=== PATIENT | female | born 1975 | race Caucasian/White ===

== ENCOUNTER → 2017-05-06 | Outpatient (CLI) | payer OTHER ==
--- NOTE | 2017-05-06 13:58 | DIREP ---
PROCEDURE:US PELVIC FOLLOWED BY TRANSVAGINAL COMPARISON:None. INDICATIONS:N92.4 EXCESSIVE BLEEDING IN PREMENOPAUSAL PERIOD TECHNIQUE:Pelvic ultrasound using transabdominal technique. Endovaginal images were also obtained for better assessment of the uterus and adnexa. 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 If this patient is menopausal, the endometrium should be considered thickened. UTERUS:Size is 9.0 x 5.5 x 6.6 cm. The myometrium is heterogeneous the endometrial myometrial junction is ill-defined and there is asymmetry in the myometrial mckinney suggesting a diagnosis of adenomyosis. A focal inhomogeneity was measured on this study, without edge shadow to confirm leiomyoma it measured 2.5 x 2.3 x 1.5 cm. The measured lesion may represent atypical appearing leiomyoma or adenomyoma. A myometrial cyst is noted in the posterior myometrium measuring 0.9 x 0.9 x 0.6 cm. ENDOMETRIUM:Not well visualized due to inhomogeneity within the myometrium. Best seen transabdominally, approximately 5 mm in thickness. RIGHT OVARY:Normal appearance. Right ovary measures 2.6 x 1.8 x 3 cm. There is a 1.2 cm corpus luteal cyst in the right ovary. LEFT OVARY:Normal appearance. 4.0 x 3.6 x 3.1 cm. A simple cyst is noted measuring 2.7 x 2.8 x 2.0 cm. CUL-DE-SAC:Normal. OTHER:Negative. CONCLUSION: 1. Uterine adenomyosis with small (<2 cm) atypical appearing leiomyoma or adenomyoma. Please see above comment regarding endometrial thickness and menstrual status. 2. Left ovarian cyst: Functional. 3. Right ovarian cyst: Corpus luteal. Dictated by: WILMER Physician on 05/06/2017 at 01:06 PM ld
== END | disposition home or self-care (01) ==
LOC: RAD 10:34
PROVIDERS: ATTEND Hospitalist
DX: N92.4 Excessive bleeding in the premenopausal period (principal); N83.292 Other ovarian cyst, left side; N83.291 Other ovarian cyst, right side
CPT/HCPCS: 76830; 76856

== ENCOUNTER 2017-05-14 04:12 | Day surgery (SDC) | payer OTHER ==
[2017-05-13 13:57] VITALS: BP 155/94
[2017-05-13 15:25] LABS: BASOPHIL % 0.2 % (0.0-0.2); EOSINOPHIL # 0.1 10^3/uL (0.0-0.2); EOSINOPHIL % 0.4 % (0.0-5.0); HEMOGLOBIN 11.6 g/dL (12.0-15.0); LYMPHOCYTES % 23.8 % (24.0-44.0); MEAN CELL HGB CONCENTRATION 31.2 g/dL (33-37); MEAN CORP VOLUME 86.7 fL (78-100); MEAN PLATELET VOLUME 9.6 fL (7.8-11.0); MONOCYTES # 0.6 10^3/uL (0.3-0.8); MONOCYTES % 5.1 % (5.0-12.0); NEUTROPHIL # 8.9 10^3/uL (1.8-7.7); NEUTROPHILS % 70.3 % (41.0-85.0); RED CELL DISTRIBUTION WIDTH 16.4 % (11.5-14.5); WHITE BLOOD CELL 12.6 10^3/uL (4.5-11.0)
[2017-05-13 15:28] LABS: BILIRUBIN,URINE NEGATIVE (NEGATIVE); UROBILINOGEN,URINE NORMAL (NEGATIVE)
[2017-05-13 15:32] LABS: APPEARANCE,URINE CLEAR (CLEAR); UA COLOR AMBER (YELLOW)
[2017-05-13 15:50] LABS: CALCIUM 9.1 mg/dL (8.4-10.5); CARBON DIOXIDE 24.8 mmol/L (20.0-32)
--- NOTE | 2017-05-13 16:35 | PCM.EKG ---
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
[~2017-05-14] VITALS: Ht 166.4 cm; Wt 83.9 kg
[2017-05-14] VITALS (10 sets, daily range): BP systolic 110–144; BP diastolic 63–92
[~2017-05-14 04:12] MED LIST: PROP40TA PO; TOPI25TA8 PO
[2017-05-14] MEDS ORDERED: NS 100ML 100 ML IV ONE (05:28)
[2017-05-14] MEDS ORDERED: LACTATED RINGERS 1,000 ML ONE ×2 (05:28→06:41)
[2017-05-14] MEDS ORDERED: CLEOCIN ONE (05:29)
[2017-05-14] MEDS ORDERED: ROCEPHIN ONE (05:29)
[2017-05-14] MEDS ORDERED: CLEOCIN IV ONE (06:00)
[2017-05-14] MEDS ORDERED: TYLENOL PO ONE ×2 (06:00→06:33)
[2017-05-14] MEDS ORDERED: NEURONTIN PO ONE (06:00)
[2017-05-14] MEDS ORDERED: LACTATED RINGERS 1,000 ML IV ONE (06:00)
[2017-05-14] MEDS ORDERED: ROCEPHIN 1,000 MG in NS 100ML 100 ML IV ONE (06:00)
[2017-05-14] MEDS ORDERED: NEURONTIN ONE (06:33)
[2017-05-14] MEDS ORDERED: ZOFRAN ONE (06:40)
[2017-05-14] MEDS ORDERED: DECADRON ONE (06:40)
[2017-05-14] MEDS ORDERED: TORADOL ONE (06:40)
[2017-05-14] MEDS ORDERED: DIPRIVAN IV ONE (06:41)
[2017-05-14] MEDS ORDERED: SUBLIMAZE ONE (06:41)
[2017-05-14] MEDS ORDERED: LIDOCAINE 2% VIAL ONE (06:41)
[2017-05-14] MEDS ORDERED: VERSED ONE (06:41)
[2017-05-14] MEDS ORDERED: SODIUM CHLORIDE IR ONE (07:15)
[2017-05-14] MEDS ORDERED: HYDR-926 PO (08:47)
--- NOTE | 2017-05-14 08:54 | PRM.DC ---
Discharge Surg Summary Surgical Discharge Diagnosis: (1) Status post hysteroscopic ablation of endometrium ICD Codes: Z98.890 - Other specified postprocedural states SNOMED: 500314131 (2) Menorrhagia ICD Codes: N92.0 - Excessive and frequent menstruation with regular cycle SNOMED: 329803242 Consultations DR VANE FERGUSON PRESENT IN OR WITH NC Procedures: HYSTEROSCOPY, MIRENA GLOBAL ENDOMETRIAL ABLATION Impressions/Complications: NO COMPLICATIONS HPI/Course PT TOLERATED PROCEDURE VERY WELL. Lab/Raghavendra/BBK/Rad Laboratory Tests Test 05/13/17 15:19 White Blood Count 12.6 10^3/uL Red Blood Count 4.29 10^6/uL Hemoglobin 11.6 g/dL Hematocrit 37.2 % Mean Corpuscular Volume 86.7 fL Mean Corpuscular Hemoglobin 27.0 pg Mean Corpuscular Hemoglobin Concent 31.2 g/dL Red Cell Distribution Width 16.4 % Platelet Count 472 10^3/uL Mean Platelet Volume 9.6 fL Neutrophils (%) (Auto) 70.3 % Lymphocytes (%) (Auto) 23.8 % Monocytes (%) (Auto) 5.1 % Neutrophils # (Auto) 8.9 10^3/uL Lymphocytes # (Auto) 3.0 10^3/uL Monocytes # (Auto) 0.6 10^3/uL Absolute Immature Granulocyte (auto 0.02 10^3 u/L Eosinophils % 0.4 % Basophils % 0.2 % Basophils # 0.0 10^3/uL Eosinophil Count 0.1 10^3/uL Urine Collection Type CCMS Urine Color DONALDO Urine Appearance CLEAR Urine Bilirubin NEGATIVE MG/DL Urine Ketones NEGATIVE Urine Specific [place] 1.020 Urine pH 6.5 Urine Protein NEGATIVE Urine Urobilinogen NORMAL Urine Nitrate NEGATIVE Urine Leukocyte Esterase NEGATIVE Urine Blood NEGATIVE Urine Glucose NORMAL Urine HCG, Qualitative NEGATIVE Sodium Level 138 mmol/L Potassium Level 3.3 mmol/L Chloride Level 102.0 mmol/L Carbon Dioxide Level 24.8 mmol/L Anion Gap 14.5 Blood Urea Nitrogen 16 mg/dL Creatinine 0.74 mg/dL Estimated GFR () 103.6 BUN/Creatinine Ratio 21.0 Glucose Level 159 mg/dL Calcium Level 9.1 mg/dL Total Bilirubin 0.2 mg/dL Aspartate Amino Transf (AST/SGOT) 7 U/L Alanine Aminotransferase (ALT/SGPT) 11 U/L Alkaline Phosphatase 76 U/L Total Protein 8.1 g/dL Albumin 3.7 g/dL Globulin 4.4 Percent Immature Gran (Cell Imm) 0.20 % Vitals/I&O VS - Last 72 Hours, by Label Date Time Temp Pulse Resp B/P (MAP) Pulse Ox O2 Delivery O2 Flow Rate FiO2 05/14/17 08:35 98.1 77 20 110/65 (80) 99 Non-Rebreather 15 05/14/17 06:00 Room Air 05/14/17 06:00 97.6 82 18 144/88 (106) 96 Room Air 05/13/17 13:57 98.3 99 18 155/94 (114) 100 Room Air Scheduled Medications Hydrocodone Bit/Acetaminophen (Oran 5-325 Tablet) 5-325 Ta1 Ea Tablet, 1 EACH PO Q6, #30 Propranolol Hcl (Propranolol Hcl) 40 Mg Tablet, 1 TAB PO BID, #60 (Reported) Last Action: Reviewed by Emily Elliott RN - [facility] Topiramate (Topiramate) 25 Mg Tablet, 1 TAB PO BID, #60 (Reported) Last Action: Reviewed by SUKI OsborneC Condition/Impression STATUS POST HYSTEROSCOPY/ENDOMETRIAL ABLATION WITH VICTOR MANUEL Activity PELVIC REST X 6 WEEKS Diet REGULAR Discharge Plan DISCHARGE HOME TO HOME TODAY Referral/Follow-up F/U WITH ME IN OFFICE 2 WEEKS Prescription/RX: Active Scripts Active Oran 5-325 Tablet (Acetaminophen/Hydrocodone Bitart) 5-325 Ta1 Ea Tablet 1 Each PO Q6 Reported Propranolol Hcl 40 Mg Tablet 1 Tab PO BID Topiramate 25 Mg Tablet 1 Tab PO BID ESTRADA GLASER MD May 14, 2017 08:54
[2017-05-14] MEDS ORDERED: CLON0.5T PO (09:17)
[2017-05-14] MEDS ORDERED: ACET-685 PO (09:18)
[2017-05-14] MEDS ORDERED: TYLENOL #3 PO ONE ×2 (09:30)
--- NOTE | 2017-05-14 11:00 | OPH ---
DATE OF SURGERY: 05/14/2017 PREOPERATIVE DIAGNOSES: 1. Menorrhagia. 2. Uterine leiomyoma. 3. Prior bilateral tubal ligation. POSTOPERATIVE DIAGNOSES: 1. Menorrhagia. 2. Uterine leiomyoma. 3. Prior bilateral tubal ligation. PROCEDURES PERFORMED: Diagnostic hysteroscopy, endometrial ablation using the Henrietta device. SURGEON: Maksim Torres MD CHEMICAL PRODUCTION MACHINE OPERATOR: Vane Ferguson MD ANESTHESIA: Maksim Leal CRNA. FINDINGS: Uterine cavity length 4.5 cm, endocervical length 4.0 cm, normal appearing endometrium. Both tubal ostia visualized. Normal appearing cervix. COMPLICATIONS: None. ESTIMATED BLOOD LOSS: Less than 25 mL. FLUIDS: Per anesthesia record. URINARY OUTPUT: Per anesthesia record. SPECIMENS: None. ANTIBIOTICS: Per anesthesia record. COUNT: Correct x 2. CONDITION: Stable to PACU. TECHNIQUE OF PROCEDURE: The patient was identified in holding, informed consent and preoperative history and physical were reviewed. All questions were answered. Postoperative instructions were reviewed with the patient. She was transported to the operating room where general anesthesia was administered by LMA. A timeout procedure was performed by the operating team. The patient was placed in the dorsal lithotomy position with SCDs in place on the lower extremities and pressure points padded appropriately. Bimanual examination demonstrated an anteverted, normal sized uterus without appreciable adnexal masses. She was prepped and draped in the usual sterile manner for vaginal surgery. The bladder was drained of clear yellow urine. A weighted speculum was placed in the vagina. The bladder was retracted anteriorly and the anterior lip of the cervix was grasped with a single tooth tenaculum. The uterine cavity sounded to a depth of 8.5 cm. The endocervical canal was progressively dilated in order to accommodate the 5 mm outer diameter hysteroscope, 30-degree angle hysteroscope. This was inserted under direct visualization using normal saline as the distending medium. The endometrial cavity was inspected and the above-mentioned findings noted. The hysteroscope was removed. The Henrietta endometrial ablation device was inserted following the contour stitcher's directions. After a CO2 cavity integrity assessment was performed, ablation was carried out. [place] through the procedure, an error code was visualized on the display. Therefore, a second device was inserted. A second CO2 cavity integrity assessment was performed, second ablation carried out. The total ablation time was 100 seconds. The second Henrietta device was withdrawn from the endometrial cavity. The hysteroscope was reinserted verifying adequate blanching and no evidence of uterine perforation. All instruments were removed from the vagina. Good hemostasis was noted on the tenaculum sites. The patient tolerated the procedure well and was transported to PACU in stable condition. VANE FERGUSON MD DR: /alex JOB# [id number] MELISSA
[2017-05-14] MEDS ORDERED: EPHEDRINE SULFATE ONE (11:55)
== END 2017-05-14 10:19 | disposition home or self-care (01) | DRG 761 ==
LOC: SDC 04:12
PROVIDERS: ATTEND Hospitalist
DX: D25.9 Leiomyoma of uterus, unspecified (principal); I10 Essential (primary) hypertension; E66.9 Obesity, unspecified; Z68.30 Body mass index [BMI] 30.0-30.9, adult; G43.909 Migraine, unspecified, not intractable, without status migrainosus; F17.210 Nicotine dependence, cigarettes, uncomplicated; Z79.899 Other long term (current) drug therapy; Z98.890 Other specified postprocedural states; Z82.49 Family history of ischemic heart disease and other diseases of the circulatory system; Z98.51 Tubal ligation status
CPT/HCPCS: 36415; 58563; 80053; 81002; 81025; 85025; 86900; 93005; J0696; J1100; J1885; J2001; J2250; J2405; J3010; J3490 ×4; J7030; J7050; J7120 ×2

== ENCOUNTER 2019-02-13 11:00 | Emergency (ER) | payer OTHER ==
[~2019-02-13] VITALS: Ht 167.6 cm; Wt 77.1 kg
[~2019-02-13 11:00] MED LIST changes: +ACET-685 PO; +CLON0.5T PO; +HYDR-3468 PO
[2019-02-13 11:40] VITALS: BP 151/92
[2019-02-13 11:53] VITALS: BP 124/67
[2019-02-13] MEDS ORDERED: PHENERGAN IM STA (12:22)
--- NOTE | 2019-02-13 12:28 | ER.PDOC ---
General Chief Complaint: Abdomen Pain Stated Complaint: COUGH, CONGESTION, FEVER, N/V/D Time seen by MD: 12:15 Source: patient Exam Limitations: no limitations History of Present Illness Initial Comments pt c/o n/v/d/x 12 hours; her son had similar sx 2 days prior; she also c/o cramping diffuse abdominal discomfort Context: bad food (she ate tacos just prior to onset of sx and questions +/- they were the cause) Severity/Quality: moderate, cramping Abdominal Pain Onset Location: Generalized Abdomen Associated Symptoms (vomiting): mild vomiting (5 times in 12 hours) Associated Symptoms (diarrhea): watery (5 episodes in 12 hours) Allergies: Coded Allergies: No Known Allergies (Unverified , 05/13/17) Home Meds Active Scripts Hydrocodone Bit/Acetaminophen (NORCO 5-325 TABLET) 5-325 Ta1 Ea Tablet, 1 EACH PO Q6 for PAIN 8-10, #30 TABLET 0 Refills Prov:ESTRADA GLASER MD 05/14/17 Reported Medications Acetaminophen With Codeine (TYLENOL WITH CODEINE #3 TABLET) 1 Each Tablet, 1 TAB PO Q6-8 PRN for PAIN, #30 TAB 05/14/17 Clonazepam (KLONOPIN) 0.5 Mg Tablet, 0.25 TAB PO Q8 PRN for ANXIETY, #10 TAB 05/14/17 Propranolol Hcl (PROPRANOLOL HCL) 40 Mg Tablet, 1 TAB PO BID, #60 TAB 5 Refills 05/13/17 Topiramate (TOPIRAMATE) 25 Mg Tablet, 1 TAB PO BID, #60 TAB 05/13/17 Vital Signs First Vital Signs Date Time Temp Pulse Resp B/P (MAP) Pulse Ox O2 Delivery O2 Flow Rate FiO2 02/13/19 11:40 98.5 79 18 151/92 (111) 99 Last Vital Signs Date Time Temp Pulse Resp B/P (MAP) Pulse Ox O2 Delivery O2 Flow Rate FiO2 02/13/19 11:53 98.9 80 18 02/13/19 11:40 99 02/13/19 11:40 151/92 (111) Past Medical History Medical History: no pertinent history Surgical History: tonsillectomy Social History Alcohol Use: none Drug Use: none Constitutional: no symptoms reported EENTM: no symptoms reported Respiratory: no symptoms reported Cardiovascular: no symptoms reported Gastrointestinal: abdominal pain, diarrhea, nausea, vomiting Musculoskeletal: no symptoms reported Skin: no symptoms reported Physical Exam General Appearance: No Apparent Distress (well-appearing 43 F in no acute distress; she is playful on exam), WD/WN Respiratory: lungs clear, normal breath sounds, no respiratory distress, no accessory muscle use Cardiovascular: Regular Rate, Rhythm Gastrointestinal: Hypoactive bowel sounds, Soft, Tenderness (vague, mild TTP throughout; no rebound or guarding) Extremities: Normal Range of Motion Neurologic/Psychiatric: Alert, Normal Mood/Affect, Oriented x 3 Skin: Normal Color, Warm/Dry Lymphatic: No Adenopathy Results/Orders Results/Orders Orders - AVANI FERGUSON DO Promethazine Hcl (Phenergan) (02/13/19 12:22) Vital Signs Date Time Temp Pulse Resp B/P (MAP) Pulse Ox O2 Delivery O2 Flow Rate FiO2 02/13/19 11:53 98.9 80 18 02/13/19 11:40 98.5 79 18 99 02/13/19 11:40 98.5 79 18 151/92 (111) 99 Departure Time of Disposition: 12:27 Disposition: 01 HOME, SELF-CARE Impression: Primary Impression: Gastroenteritis Condition: Stable Patient Instructions: Viral Gastroenteritis Referrals: CARMEN BORDEN MD (PCP) PRIMARY CARE PROVIDER Additional Instructions: Clear liquid diet for 24 hours, gradually advancing as tolerated. Return to ER if symptoms worsen, severe abdominal pain or any other concerns. Duration or Time Spent with Pa: 15 minutes AVANI FERGUSON DO Feb 13, 2019 12:28
[2019-02-13] MEDS ORDERED: PHENERGAN ONE (12:29)
[2019-02-13] MEDS ORDERED: NS 25ML 25 ML IV ONE (12:30)
== END 2019-02-13 12:50 | disposition home or self-care (01) ==
LOC: ER 11:00
DX: K52.9 Noninfective gastroenteritis and colitis, unspecified (principal); Z79.899 Other long term (current) drug therapy
CPT/HCPCS: 96372; 99283; J2550; 99285